=== PATIENT | male | born 1965 | race Caucasian/White ===

== ENCOUNTER → 2023-08-23 15:21 | Outpatient (REF) | payer BC, SELFPAY | LOC: RAD 15:21 | PROVIDERS: ATTENDING PHYSICIAN Family Medicine | DX: I82.4Z2 Acute embolism and thrombosis of unspecified deep veins of left distal lower extremity (principal) | CPT/HCPCS: 93971 ==

== ENCOUNTER → 2024-03-29 08:10 | Outpatient (REF) | payer BC, SELFPAY ==
[2024-03-29 10:03] LABS: % Basophils 1.6 % (0-2); % Immature Granulocytes 0.3 % (0-0.5); % Lymphocytes 30.9 % (20.5-51.1); % Monocytes 10.8 % (1.7-9.3); % Neutrophils 52.4 % (42.2-75.2); Absolute Basophils 0.1 10^3/uL (0-0.2); Absolute Eosinophils 0.2 10^3/uL (0-0.7); Absolute Lymphocytes 1.2 10^3/uL (1.2-3.4); Absolute Monocytes 0.4 10^3/uL (0.1-0.6); Hematocrit 41.6 % (39.0-52.0); Hemoglobin 13.8 g/dL (13.0-18.0); Mean Corp Hgb Conc. 33.2 g/dL (33.0-37.0); Mean Corpuscular Hgb 31.9 pg (27.0-31.0); Mean Corpuscular Volume 96.3 fL (80.0-94.0); Nucleated Red Blood Cells % 0 % (-); Platelet Count 157 10^3/uL (130-400); Red Blood Cell Count 4.32 10^6/uL (4.70-6.10); Red Cell Dist. Width 12.4 % (11.5-14.5); White Blood Cell Count 3.8 10^3/uL (4.8-10.8)
[2024-03-29 11:00] LABS: ALT (SGPT) 27 U/L (0-50); AST (SGOT) 35 U/L (17-59); Albumin 4.5 g/dl (3.5-5.0); Alkaline Phosphatase 54 U/L (38-126); Blood Urea Nitrogen 22 mg/dl (9-20); Calcium 9.5 mg/dl (8.4-10.2); Carbon Dioxide 29 mmol/L (22-30); Chloride 103 mmol/L (98-107); Glucose 96 mg/dl (70-99); HDL Cholesterol 82 mg/dl; LDL Cholesterol, Calculated 95 mg/dl; Potassium 5.5 mmol/L (3.5-5.1); Sodium 140 mmol/L (135-145); Total Bilirubin 1.1 mg/dl (0.2-1.3); Total Cholesterol 191 mg/dl (50-199); Total Protein 7.2 g/dl (6.3-8.2); Triglyceride 72 mg/dl (10-149); Very Low Density Lipoprotein 14 mg/dl (0-30); eGFR > 60.00
[2024-03-29 11:20] LABS: PSA, Total - Screen 1.15 ng/ml (0.0-4.0); TSH 1.01 uIU/ml (0.47-4.68)
[2024-03-30 13:32] LABS: Vitamin B12 352 pg/ml (239-931)
== END ==
LOC: REG 08:10
PROVIDERS: ATTENDING PHYSICIAN Physician Assistant Medical
DX: Z00.00 Encounter for general adult medical examination without abnormal findings (principal); Z68.26 Body mass index [BMI] 26.0-26.9, adult; F41.9 Anxiety disorder, unspecified; E78.2 Mixed hyperlipidemia; R35.1 Nocturia; Z23 Encounter for immunization; D68.51 Activated protein C resistance; Z80.42 Family history of malignant neoplasm of prostate
CPT/HCPCS: 36415; 80053; 80061; 82607; 82728; 84443; 85025; G0103

== ENCOUNTER → 2025-05-14 09:16 | Outpatient (REF) | payer BC, SELFPAY ==
[2025-05-14 11:30] LABS: Hematocrit 42.4 % (39.0-52.0); Hemoglobin 14.1 g/dL (13.0-18.0); Mean Corp Hgb Conc. 33.3 g/dL (33.0-37.0); Mean Corpuscular Volume 95.7 fL (80.0-94.0); Nucleated Red Blood Cells % 0 % (-); Platelet Count 164 10^3/uL (130-400); Red Cell Dist. Width 12.6 % (11.5-14.5)
[2025-05-14 12:19] LABS: ALT (SGPT) 23 U/L (0-50); AST (SGOT) 33 U/L (17-59); Albumin 4.8 g/dl (3.5-5.0); Alkaline Phosphatase 71 U/L (38-126); Blood Urea Nitrogen 18 mg/dl (9-20); Calcium 9.5 mg/dl (8.4-10.2); Carbon Dioxide 28 mmol/L (22-30); Chloride 104 mmol/L (98-107); Glucose 93 mg/dl (70-99); HDL Cholesterol 80 mg/dl; LDL Cholesterol, Calculated 101 mg/dl; Potassium 4.5 mmol/L (3.5-5.1); Sodium 138 mmol/L (135-145); Total Protein 8.3 g/dl (6.3-8.2); Very Low Density Lipoprotein 16 mg/dl (0-30); eGFR > 60.00
[2025-05-14 12:39] LABS: PSA, Total - Screen 1.16 ng/ml (0.0-4.0); TSH 0.89 uIU/ml (0.47-4.68)
[2025-05-14 12:58] LABS: Vitamin B12 760 pg/ml (239-931)
[2025-05-14 17:20] LABS: Folate 7.4 ng/ml (2.76-20)
== END ==
LOC: REG 09:16
PROVIDERS: ATTENDING PHYSICIAN Physician Assistant Medical; FAMILY PHYSICIAN Family Medicine
DX: Z00.00 Encounter for general adult medical examination without abnormal findings (principal); Z68.26 Body mass index [BMI] 26.0-26.9, adult; F41.9 Anxiety disorder, unspecified; E78.2 Mixed hyperlipidemia; R35.1 Nocturia; Z80.42 Family history of malignant neoplasm of prostate; D68.51 Activated protein C resistance; Z23 Encounter for immunization
CPT/HCPCS: 36415; 80053; 80061; 82607; 82746; 84443; 85025; G0103